=== PATIENT | male | born 1965 | race Caucasian/White ===

== ENCOUNTER → 2024-09-22 07:51 | Outpatient (REF) | payer SELFPAY | LOC: HWRCS 07:51 | PROVIDERS: ATTENDING PHYSICIAN Registered Nurse; FAMILY PHYSICIAN Internal Medicine | DX: E78.00 Pure hypercholesterolemia, unspecified (principal); I25.10 Atherosclerotic heart disease of native coronary artery without angina pectoris; I10 Essential (primary) hypertension; R07.89 Other chest pain | CPT/HCPCS: 93306 ==